=== PATIENT | female | born 1950 | race Caucasian/White ===

== ENCOUNTER 2020-02-14 20:01 | Emergency (ER) | payer MEDICARE, OTHER ==
[~2020-02-14] VITALS: Ht 160 cm; Wt 49.0 kg
--- NOTE | ~2020-02-14 | CON ---
[address] [address] CONSULTATION Name: YANELI SCHWARTZ Room: [facility] aRfa#: [id number] Admission: 02/14/20 Attend Phys: Discharge: 02/15/20 Date of : 46 Report #: [id number] THIS REPORT FOR: //name// cc: Milad Priest Russell J. DO ~ HISTORY OF PRESENT ILLNESS: This is a pleasant 69-year-old female with no significant past medical or surgical history. She is presenting with food bolus impaction. The patient reports she has had steak stuck in her chest since dinner. She denies similar episodes in the past. Denies prior episodes of dysphagia, hematemesis, hematochezia or reflux. She has never had an EGD before. PAST MEDICAL HISTORY: Nonsignificant. PAST SURGICAL HISTORY: Nonsignificant. SOCIAL HISTORY: The patient denies smoking, alcohol or recreational drug use. FAMILY HISTORY: No history of esophageal, gastric or colonic malignancy. REVIEW OF SYSTEMS: Comprehensive 10-point review of systems is negative except for what was mentioned in the HPI. PHYSICAL EXAMINATION: VITAL SIGNS: Temperature 37, pulse rate 100, respiratory rate 18, blood pressure 133/78, pulse ox 99% on room air. GENERAL: The patient is alert, awake, oriented x 3. HEENT: Pupils are equal, round, reactive to light and accommodation. Mucous membranes are moist. There is no congestion. LUNGS: Clear to auscultation bilaterally. CARDIOVASCULAR: Rate and rhythm regular. S1, S2 present. ABDOMEN: Soft. There is no distention, guarding or rigidity. EXTREMITIES: Warm, well perfused. There is no edema. LABORATORY DATA: Hemoglobin 13.9, hematocrit 39.1, platelet count 244, WBC count 4.6. Sodium 141, potassium 3.5, chloride 105, bicarbonate 26, BUN 23, creatinine 0.7. COVID test negative. ASSESSMENT AND PLAN: This is a 69-year-old female presenting with food bolus impaction. We will proceed with EGD and disimpaction. Further recommendations based on results of these tests. By: [id number] Yoder MD /nt
[2020-02-14] MEDS ORDERED: LEVO-T100 MCG PO (20:25)
[2020-02-14] MEDS ORDERED: LIPITOR 20 MG T20 M1 PO (20:25)
[2020-02-14 20:52] LABS: ABSOLUTE EOSINOPHILS 0.1 thou/uL (0.0-0.7); ABSOLUTE MONOCYTES 0.4 thou/uL (0.0-1.2); BASOPHILS 0.6 %; EOSINOPHILS 2.3 %; HEMATOCRIT 39.1 % (37.0-47.0); HEMOGLOBIN 13.2 gm/dL (12.0-15.0); LYMPHOCYTES 21.9 %; MCH 32.2 pg (26.0-34.0); MCHC 33.7 g/dL (28.0-37.0); MCV 95.4 fL (80.0-100.0); MONOCYTES 9.4 %; MPV 6.7 fl. (7.2-11.1); NUCLEATED RBCS 0 /100WBC; PLATELET COUNT* 244 thou/uL (150-400); POLYS 65.8 %; RDW-CV 13.6 % (10.5-14.5); WBC 4.6 thou/uL (4.0-11.0)
[2020-02-14 20:59] LABS: CALCIUM 8.8 mg/dL (8.5-10.1); CREATININE 0.7 mg/dL (0.6-1.3); POTASSIUM 3.5 mmol/L (3.5-5.1)
[2020-02-14 21:04] LABS: ALBUMIN 3.7 g/dL (3.4-5.0); TOTAL BILIRUBIN 1.1 mg/dL (<0.1-1.0); TOTAL PROTEIN 7.2 g/dL (6.4-8.2)
[2020-02-15 01:04] VITALS: BP 133/78
[2020-02-15 01:19] VITALS: BP 133/78
--- NOTE | 2020-02-15 16:38 | EKG ---
[place] [address] ELECTROCARDIOGRAM REPORT Name: YANELI SCHWARTZ [id number] Admission: 02/14/20 Attend Phys: Discharge: 02/15/20 Date of : 46 Date of Service: 02/14/202029 Report #: [id number] THIS REPORT FOR: //name// [facility] ED Test Date: 2020-02-14 Test Time: 20:30:33 Pat Name: YANELI SCHWARTZ Department: Room: Gender: Cyber Security Analyst: : 1950 Requested By: Toya Liu Order Number: [id number] MD: Mehul Lopez Measurements Intervals [place] Rate: 94 P: 64 GA: 154 QRS: 1 QRSD: 89 T: 56 QT: 367 QTc: 459 Interpretive Statements Sinus rhythm No previous ECG available for comparison Electronically Signed On 02-15-2020 16:37:56 [employer] WORK[employer] by Mehul Lopez [email or web address] <ELECTRONICALLY SIGNED> By: Mehul Lopez MD, [facility] 02/15/20 1637 29 2030 Mehul Lopez MD, FACC /EPI
== END 2020-02-15 00:09 | disposition still patient (30) ==
LOC: M.ERS 20:01
PROVIDERS: Personal Emergency Response Attendant
DX: T17.228A Food in pharynx causing other injury, initial encounter (principal); Z20.828 Contact with and (suspected) exposure to other viral communicable diseases; E78.5 Hyperlipidemia, unspecified; E03.9 Hypothyroidism, unspecified; X58.XXXA Exposure to other specified factors, initial encounter; Y93.89 Activity, other specified; Y92.89 Other specified places as the place of occurrence of the external cause; Y99.8 Other external cause status